=== PATIENT | female | born 1955 | race Caucasian/White ===

== ENCOUNTER 2016-09-06 19:19 | Emergency (ER) | payer BC, OTHER ==
[~2016-09-06] VITALS: Ht 175.3 cm; Wt 76.5 kg
[~2016-09-06 19:19] MED LIST: LITH300T2 PO; LITH600C PO; SYN25 PO
[2016-09-06 19:25] VITALS: Ht 175.3 cm; Wt 76.5 kg
[2016-09-06 19:51] VITALS: TEMP 36.6
[2016-09-06 19:56] LABS: URINE APPEARANCE CLOUDY (CLEAR); URINE BILIRUBIN NEG (NEG); URINE COLOR YELLOW; URINE NITRITE NEG (NEG); URINE PH 5.5 (4.5-7.5); URINE SPECIFIC GRAVITY 1.009 (1.000-1.030); UROBILINOGEN NEG (NEG)
[2016-09-06 19:59] LABS: MANUAL MICROSCOPIC REQUIRED? NO; REVIEW REQ? NO
[2016-09-06 20:25] LABS: BENZODIAZEPINE, URINE NEG (NEG); COCAINE,URINE NEG (NEG); PHENCYCLIDINE, URINE NEG (NEG)
[2016-09-06] MEDS ORDERED: SYN25 PO (20:26)
[2016-09-06] MEDS ORDERED: LITHIUM CARBONATE PO (20:26)
[2016-09-06 20:27] LABS: HEMATOCRIT 42.7 % (37-47); MEAN CELL VOLUME 96.6 fL (80-100); MEAN CORPUSCULAR HEMOGLOBIN 31.9 pg (25-34); MEAN PLATELET VOLUME 12.5 fL (7.4-10.4); PLATELET COUNT 167 K/uL (130-400); RED BLOOD COUNT 4.42 M/uL (4.2-5.4)
--- NOTE | 2016-09-06 20:49 | DIAGNOSTIC IMAGING REPORT ---
HEAD CT NONCONTRAST CT DOSE: 537.48 mGy.cm HISTORY: Altered mental status. eval for bleed/mass TECHNIQUE: Multiaxial CT images of the head were performed without the use of intravenous contrast. Automated exposure control was utilized for this study. Comparison: None. Findings: The paranasal sinuses and mastoid air cells are clear. The calvarium and skull base are intact. The ventricles and sulci are within normal limits. There is no mass, hematoma, midline shift, or acute infarct. Impression: No acute intracranial abnormality. Electronically signed by: Ankur Huddleston M.D. 09/06/2016 8:48 PM Dictated Date/Time: 09/06/2016 8:46 PM
[2016-09-06 20:57] LABS: ACETAMINOPHEN < 2 ug/ml (10-30)
[2016-09-06 21:03] LABS: BLOOD UREA NITROGEN 16 mg/dl (7-18); BUN/CREATININE RATIO 11.5 (10-20); CARBON DIOXIDE 26 mmol/L (21-32); CHLORIDE 108 mmol/L (98-107); POTASSIUM 4.1 mmol/L (3.5-5.1); SODIUM 142 mmol/L (136-145); THYROID STIMULATING HORMONE 0.044 uIu/ml (0.300-4.500)
[2016-09-06] MEDS ORDERED: SULFAMETHOXAZOLE/TRIMETHOPRIM DS 800/160MG TAB PO STA (21:05)
[2016-09-06 21:20] LABS: ALKALINE PHOSPHATASE 83 U/L (45-117); AST/SGOT 21 U/L (15-37); GLUCOSE 116 mg/dl (70-99)
[2016-09-06 21:21] LABS: ALT/SGPT < 6 U/L (12-78)
[2016-09-06 21:58] LABS: CALCIUM 9.4 mg/dl (8.5-10.1)
[2016-09-07] MEDS ORDERED: SULF800T23 PO (01:30)
[2016-09-07 01:45] VITALS: BP 136/84; PULSE 70; O2SAT 98
--- NOTE | 2016-09-07 01:56 | EMERGENCY ROOM VISIT NOTE ---
History Report prepared by Namrata: Caroline Marquis Under the Supervision of: Dr. Thiago Pretty M.D. First contact with patient: 19:29 Chief Complaint: MENTAL HEALTH EVALUATION Stated Complaint: MENTAL HEALTH EVALUATION History of Present Illness The patient is a 60 year old female who presents to the Emergency Room for a mental health evaluation. She was brought to the ED by police. Per officer, the patient has been for 4 years. The states that she has basically left him alone for the past 4 years. Forty days ago she showed up at his house randomly and then left. Today the patient showed up at his house again. She was acting very strange. She kept telling him that they were not actually . The asked the patient to leave multiple times, but she refused so he called police. The plain clothes police officer states that the patient was sitting outside when she arrived. There was a pocket knife on a picnic table that she told the patient not to touch. Instead the patient picked it up and refused to drop it. She had to forcefully remove the knife from the patient's grasp. The patient states that she was just trying to give the knife to the officer. She states that she wanted to talk to her ex- today because she thought that they were not actually and that their divorce was "incomplete." She wanted to talk to him about moving back in together. When asked where she heard that they were not , the patient responds, "I heard things from around." The plain clothes police officer denies the patient making any suicidal or homicidal threats. The patient has a history of bipolar disorder and is currently taking lithium. She states that she is taking this medication as prescribed and has not missed any doses. She admits to drinking 3 beers today. The patient denies fever, headache, abdominal pain, vomiting, diarrhea, and any recent illness. She denies SI and HI. 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 Review of Systems See HPI for pertinent positives & negatives. A total of 10 systems reviewed and were otherwise negative. Past Medical & Surgical Medical Problems: (1) Bipolar affective, depress, mod Family History Cancer Social History Smoking Status: Never Smoker Alcohol Use: occasionally Marital Status: Housing Status: lives alone Current/Historical Medications Scheduled Levothyroxine Sodium (Synthroid), 25 MCG PO DAILY Sulfa/Trimethoprim (Bactrim Ds 800MG/160MG), 1 TAB PO BID [[place] Carbonate], 1 TAB PO BID Allergies Coded Allergies: No Known Allergies (Verified , 05/21/02) Physical Exam Vital Signs Date Time Temp Pulse Resp B/P (MAP) Pulse Ox O2 Delivery O2 Flow Rate FiO2 09/07/16 01:45 70 20 136/84 98 09/06/16 19:51 36.6 69 18 122/78 95 Room Air 09/06/16 19:25 36.5 78 18 137/85 95 Room Air Physical Exam Constitutional: Vital signs reviewed. Eyes: Pupils are equal round reactive to light. Conjunctiva are noninjected. ENT: Pharynx is clear without erythema or exudate. Mucous membranes are moist. Neck supple without meningeal signs. Respiratory: Clear to auscultation bilaterally. Breath sounds are equal bilaterally. Cardiovascular: Regular rate and rhythm. No rubs or gallops. GI: Soft, nondistended and nontender. Bowel sounds are present. Musculoskeletal: No peripheral edema. No lower extremity tenderness. Integumentary: No cyanosis. Neurological: The patient is awake and alert. Cranial nerves II-XII are intact. Motor is 5 out of 5 all extremities. Sensation is intact to light touch all extremities. Normal speech. No pronator drift. Psychiatric: Guarded affect. No flight of ideas. Medical Decision & Procedures ER Provider Diagnostic Interpretation: Radiology results as stated below per my review and the radiologist's interpretation: HEAD CT NONCONTRAST CT DOSE: 537.48 mGy.cm HISTORY: Altered mental status. eval for bleed/mass TECHNIQUE: Multiaxial CT images of the head were performed without the use of intravenous contrast. Automated exposure control was utilized for this study. Comparison: None. Findings: The paranasal sinuses and mastoid air cells are clear. The calvarium and skull base are intact. The ventricles and sulci are within normal limits. There is no mass, hematoma, midline shift, or acute infarct. Impression: No acute intracranial abnormality. Electronically signed by: Ankur Huddleston M.D. 09/06/2016 8:48 PM Dictated Date/Time: 09/06/2016 8:46 PM Laboratory Results 09/06/16 20:09 09/06/16 20:09 Test 09/06/16 19:35 09/06/16 20:09 Urine Color YELLOW Urine Appearance CLOUDY (CLEAR) Urine pH 5.5 (4.5-7.5) Urine Specific [place] 1.009 (1.000-1.030) Urine Protein NEG (NEG) Urine Glucose (UA) NEG (NEG) Urine Ketones NEG (NEG) Urine Occult Blood TRACE (NEG) Urine Nitrite NEG (NEG) Urine Bilirubin NEG (NEG) Urine Urobilinogen NEG (NEG) Urine Leukocyte Esterase LARGE (NEG) Urine WBC (Auto) >30 /hpf (0-5) Urine RBC (Auto) 0-4 /hpf (0-4) Urine Hyaline Casts (Auto) 0 /lpf (0-5) Urine Epithelial Cells (Auto) 10-20 /lpf (0-5) Urine Bacteria (Auto) 1+ (NEG) Urine Opiates Screen NEG (NEG) Urine Methadone, Qualitative NEG (NEG) Urine Barbiturates NEG (NEG) Urine Phencyclidine (PCP) Level NEG (NEG) Ur Amphetamine/Methamphetamine NEG (NEG) MDMA (Ecstasy) Screen NEG (NEG) Urine Benzodiazepines Screen NEG (NEG) Urine Cocaine Metabolite NEG (NEG) Urine Marijuana (THC) NEG (NEG) Red Blood Count 4.42 M/uL (4.2-5.4) Mean Corpuscular Volume 96.6 fL (80-100) Mean Corpuscular Hemoglobin 31.9 pg (25-34) Mean Corpuscular Hemoglobin Concent 33.0 g/dl (32-36) RDW Standard Deviation 45.6 fL (36.4-46.3) RDW Coefficient of Variation 12.9 % (11.5-14.5) Mean Platelet Volume 12.5 fL (7.4-10.4) Anion Gap 8.0 mmol/L (3-11) Est Creatinine Clear Calc Drug Dose 43.6 ml/min Estimated GFR () 46.6 Estimated GFR (Non- 40.2 BUN/Creatinine Ratio 11.5 (10-20) Calcium Level 9.4 mg/dl (8.5-10.1) Total Bilirubin 0.3 mg/dl (0.2-1) Direct Bilirubin < 0.1 mg/dl (0-0.2) Aspartate Amino Transf (AST/SGOT) 21 U/L (15-37) Alanine Aminotransferase (ALT/SGPT) < 6 U/L (12-78) Alkaline Phosphatase 83 U/L (45-117) Total Protein 7.8 gm/dl (6.4-8.2) Albumin 3.5 gm/dl (3.4-5.0) Thyroid Stimulating Hormone (TSH) 0.044 uIu/ml (0.300-4.500) Free Thyroxine 0.54 ng/dl (0.80-1.60) Salicylates Level < 1.7 mg/dl (2.8-20) Acetaminophen Level < 2 ug/ml (10-30) [place] Level 0.9 mMOL/L (0.6-1.2) Ethyl Alcohol mg/dL 63.0 mg/dl (0-3) Laboratory results as reviewed by me. Medications Administered Medications (Trade) Dose Ordered Sig/Naz Route Start Time Stop Time Status Last Admin Dose Admin Trimethoprim/ Sulfamethoxazole (Septra Ds 800/ 160MG Tab) 1 tab NOW STAT PO 09/06/16 21:05 09/06/16 21:06 DC 09/06/16 21:29 1 TAB ED Course 1928: The patient was evaluated in room A7. A complete history and physical exam was performed. 1957: According to the nurse, the patient told her that she carries a pocket knife because sometimes she hears spirits that threaten her. 2104: Trimethoprim/Sulfamethoxazole 1 tab PO 2114: I updated the patient on her lab results. She denies any urinary symptoms. [facility] is going to evaluate the patient in the ED. 0016: I discussed the patients case with [facility]. 0039: At this time with permission from the patient, I attempted to call the ex- . He was not available and I left a message. I attempted to call Mercedes Lee, and she was not available either. I am going to page the on-call psychiatrist. 0052: I spoke with Dr. Belcher, the psychiatrist global transportation manager. We discussed the patients case. 0056: The patient's ex- returned my call. 0105: I spoke with Dr. Belcher again at this time. He said that the patient does not meet criteria for admission. 0125: I reassessed the patient at this time. I discussed the results and treatment plan with the patient. She said that she will not go to her ex- 's house to discuss the divorce. If she feels like they are not , she will contact a bill distributor instead. I answered all pertaining questions that she had. She expressed understanding and verbalized agreement. The patient will be discharged home. Medical Decision This is a 60-year-old female who presents for mental health evaluation. I did perform a limited focused review of portions of the patient's old chart on the electronic medical record. The patient has had no recent pertinent visits to this hospital. Medication Reconciliation: I attest that I have personally reviewed the patient' s current medication list. Blood Pressure Screening: Patient was found to have an elevated blood pressure and was referred to their primary doctor for recheck and further treatment. I did evaluate the patient as noted above. I did obtain history from the patient as well as the plain clothes police officer who brought her in. I did order a urinalysis which does show signs of infection. A urine culture was sent and she was given Bactrim. She denies having any urinary symptoms. I did order and review the patient's blood work as noted in the electronic medical record. Her lithium level is not toxic. I did order a CT of the head. I did review the images myself as well as the radiology report as described above. I did medically clear the patient. I did have can help assess the patient. Can help did not feel that the patient required inpatient care. I did speak further with the patient as I did not feel completely comfortable with this plan. The patient explained to me that she did not hear that the plain clothes police officer told her to leave the knife. She thought she had told her to give her the knife and she was trying to give her the knife when the plain clothes police officer got flustered and felt threatened. She was holding out the closed pocket knife to her so that she could take it. She denies any suicidal ideation or homicidal ideation. 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 She states that his spirit told her to watch a boy whose mother was away so that nothing would happen to the boy. She states that everybody here spirits better from the gods. She states she was at her ex-'s house today because she believes that her divorce was not final. I did ask her permission to talk to her ex- to obtain further information regarding what happened today. She agreed. I spoke to her ex-, Shin, who corroborated her story regarding happened with the plain clothes police officer. He stated that he witnessed the event and that there was a misunderstanding and that she was trying to give the knife to the plain clothes police officer. He stated that she had the closed knife in her open palm and was trying to approach the officer to give it to her. He stated that the patient has been "bat shit crazy" for many years. When I explained to him that I would talk to mental health and the psychiatrist to determine whether or not she could be sent home he became extremely irate. He stated that the plain clothes police officer told him that she would be committed for 72 hours and that her van was at his property. He stated that he wanted to change his story and states that she did threaten the police with the knife and he feels threatened by her. I tried to explain to him that even though people can be delusional we cannot necessarily commit somebody against her will unless they are an immediate threat to himself or others. He asked why he was talking to me , the ER doc, and not the mental health people. He demanded to speak to the mental health worker. I did give the mental health worker's phone number to speak to him and explain the situation. I did discussed the case in detail with Dr. Belcher of psychiatry. He felt that the patient did not meet criteria for inpatient care and involuntary commitment and recommended outpatient care. The patient does have a psychiatrist. She was advised to follow up with her doctor and psychiatrist and given a prescription for Bactrim. She did call for a ride home. Consults Time Called: 41 Consulting Physician: Dr. Belcher Returned Call: [address] Belcher, the psychiatrist global transportation manager. We discussed the patients case. Additional Consults: Time Called: 104 Consulted Physician: Dr. Belcher Returned Call: 104 Additional Comments: I spoke with Dr. Belcher again at this time. He said that the patient does not meet criteria for admission. Impression Primary Impression: Thought disorder Additional Impression: UTI (urinary tract infection) Scribe Attestation The scribe's documentation has been prepared under my direct and personally reviewed by me in its entirety. I confirm that the note above accurately reflects all work, treatment, procedures, and medical decision making performed by me. Departure Information Dispostion Home / Self-Care Prescriptions Sulfa/Trimethoprim (Bactrim Ds 800MG/160MG) Tab 1 TAB PO BID, #14 TAB Prov: Thiago Pretty M.D. 09/07/16 Referrals No Doctor, Assigned (PCP) Forms HOME CARE DOCUMENTATION FORM, IMPORTANT VISIT INFORMATION Patient Instructions Bipolar Disorder, My [facility], UTI Additional Instructions You have been examined and treated today on an emergency basis only. This is not a substitute for, or an effort to provide, complete comprehensive medical care. It is impossible to recognize and treat all injuries or illnesses in a single emergency department visit. It is therefore important that you follow up closely with your physician and psychiatrist. Call as soon as possible for an appointment. Return for worsening symptoms or if you develop thoughts of hurting yourself or others, fever, vomiting or any other concerning symptoms. Problem Qualifiers Additional Impression: UTI (urinary tract infection) Urinary tract infection type: site unspecified Hematuria presence: with hematuria Qualified Codes: N39.0 - Urinary tract infection, site not specified ; R31.9 - Hematuria, unspecified
== END 2016-09-07 01:47 | disposition home or self-care (01) ==
LOC: C.EDB 19:20 → C.EDA 09-07 01:47
DX: F99 Mental disorder, not otherwise specified (principal); N39.0 Urinary tract infection, site not specified; F31.9 Bipolar disorder, unspecified; Z80.9 Family history of malignant neoplasm, unspecified; Z79.899 Other long term (current) drug therapy